=== PATIENT | female | born 1990 | race Caucasian/White ===

== ENCOUNTER 2018-12-03 17:04 | Emergency (ER) | payer OTHER, SELFPAY ==
[2018-12-03 17:07] VITALS: BP 127/65; PULSE 78; RESP 16; TEMP 36.6; O2SAT 100; BMI 34.7
--- NOTE | 2018-12-03 17:19 | PC.NURSE ---
pt reports, back in October 30, pt was running , felt a twinge lower back pain, since with intermittent pain, now +urine leaking for a week, +urgency. left lower leg with numbness anterior,lateral,posterior,+weakness the last 2 days. midlower lumbar pain radiating to left hip. denies chills/fever,+nausea, no vomiting, had diarrhea.
--- NOTE | 2018-12-03 17:28 | DI.RAD.S_ITS ---
PROCEDURE: XR LUMBAR SPINE 2-3V INDICATIONS: Lumbar vertebral pain, Left leg weakness. TECHNIQUE: 2 views of the lumbar spine were acquired. COMPARISON: None. FINDINGS: Bones: 5 [id number]-[id number] vertebrae are present. There is normal bony alignment. No vertebral body compression fractures. No suspicious bony lesions. Question bilateral L5 pars defects. Lower lumbar facet arthropathy. Soft tissues: Overlying bowel gas pattern is normal. No suspicious soft tissue calcifications. IMPRESSION: Question bilateral L5 pars defects with normal alignment. Lower lumbar facet arthropathy. Dictated by: Cash Thomas M.D. on 12/03/2018 at 18:01 Approved by: Cash Thomas M.D. on 12/03/2018 at 18:02
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
[2018-12-03] MEDS: KETOROLAC 60 MG/2 ML VIAL 30 MG IM (17:57)
[2018-12-03 19:00] VITALS: BP 117/63; PULSE 78; O2SAT 99
== END 2018-12-03 19:01 | disposition home or self-care (01) ==
PROVIDERS: Emergency Provider Nurse Practitioner
DX: M54.5 Low back pain (principal)
CPT/HCPCS: 72100; 81003; 81025; 96372; 99282; 99283; J1885

== ENCOUNTER 2019-06-05 11:22 | Emergency (ER) | payer OTHER, SELFPAY ==
[2019-06-05 11:46] VITALS: BP 133/88; PULSE 83; RESP 18; TEMP 36.6; O2SAT 98
[2019-06-05] MEDS: ACETAMINOPHEN 325 MG TABLET 975 MG PO (12:41)
[2019-06-05] MEDS: predniSONE 20 MG TABLET 40 MG PO (12:42)
[2019-06-05] MEDS: CYCLOBENZAPRINE 10 MG TABLET PO (12:43)
[2019-06-05] MEDS: LIDOCAINE PATCH 1 EACH ADH..PATCH TOP (12:43)
[2019-06-05 13:59] VITALS: PULSE 78; RESP 14; O2SAT 100
--- NOTE | 2019-06-05 14:19 | ED.BACK ---
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 Patient also starting to have some discomfort in right-sided low back pain as well. Patient reports last 2 months the pain has been coming on more frequently and severe. Patient reports she has been having similar pain since last year November without injury that she noticed after running 4 to 5 times a week. Patient was evaluated by her primary care physician in [employer] and had imaging tests done with x-ray, 2 MRI test without contrast. Last MRI test was done in May 14, 2019 after she had noticed stool incontinence. Patient is currently waiting to be seen by Eriedarwin Terrell with spinal injection in 3 days. She has been taking [id number] Tylenol and Motrin which she stopped per orthopedist instruction for 1 week prior to spine injection. Patient currently takes Cymbalta for nerve discomfort. Patient denies fever, vomiting but reports some mild chills and nausea. Patient also reports urinary frequency without dysuria or hematuria. Patient was referred to emergency room today by her slight surgeon due to the severe pain. Related Data Home Medications Medication Instructions Recorded Confirmed acetaminophen [Tylenol Extra 1,000 mg PO TID 06/05/19 06/05/19 Strength] duloxetine 30 mg PO DAILY 06/05/19 06/05/19 ibuprofen 800 mg PO Q8H 06/05/19 06/05/19 norgestimate-ethinyl estradiol 1 tab PO DAILY 06/05/19 06/05/19 [[facility]-L[facility]ah] Previous Rx's Medication Instructions Recorded cyclobenzaprine 10 mg PO BID PRN #7 tab 06/05/19 lidocaine 1 patch TOP DAILY #15 each 06/05/19 prednisone 40 mg PO DAILY 4 Days #8 tab 06/05/19 Allergies Allergy/AdvReac Type Severity Reaction Status Date / Time No Known Drug Allergies Allergy Verified 12/03/18 17:07 Review of Systems <KARON Marinelli - Last Filed: 06/05/19 14:54> Review of Systems Narrative: General: Denies fever, chills, fatigue, malaise, sweats. HEENT: Denies sinus pain, ear pain, sore throat, difficulty swallowing, dizziness. Respiratory: Denies dyspnea, cough, wheezing, hemoptysis, sputum. Cardiovascular: Denies chest pain, palpitations, orthopnea, edema. Gastrointestinal: Denies nausea, vomiting, abdominal pain, diarrhea, constipation, melena. : Denies dysuria, (+) frequency, incontinence, hematuria, urinary retention. Musculoskeletal: See HPI Skin: Denies rash, skin lesions, or other. Neurologic: Denies headache, (+) numbness and weakness to left leg, change in speech, confusion, seizures, incoordination. Psychiatric: No concerning psychosocial issues. 12-point review of systems is negative except for those stated above. Patient History <KARON Marinelli - Last Filed: 06/05/19 14:54> Medical History No significant medical problems (Acute) Social History Smoking Status: Never smoker Smoking Status: Never smoker alcohol intake frequency: holidays/special occasions only Substance Use Type: does not use Exam <KARON Marinelli - Last Filed: 06/05/19 14:54> Narrative Exam Narrative: General appearance: well developed, well nourished, appears to be in moderate discomfort. Head: normocephalic, atraumatic, no scalp lesions, non-tender. ENT: Bilateral auditory canals and tympanic membranes clear. Hearing grossly intact. Nose without bleeding, purulent discharge, septal hematoma or deviation. Turbinate without erythema or swelling. Facial sinuses nontender to palpate. Mucous membrane moist, no mucosal lesion. Throat without erythema, tonsillar hypertrophy or exudate. Uvula in midline, airway patent. Neck/Thyroid: neck supple, full range of motion, no visible masses or meningeal signs. No JVD, non-tender without lymphadenopathy. Skin: no suspicious rashes, lesions over visible areas. Warm and dry and appropriate color for ethnicity. Heart: no clubbing, no cyanosis, no edema. S1 and S2 normal. RRR w/o murmurs, clicks, or bruits. Lungs: Breathing even and unlabored. No stridor. No accessory muscles used. Able to speak in full sentences. Chest: normal shape and expansion. Abdomen: non-obese, non-distended. Neurologic: alert and oriented. Cognitive exam, [employer] and PNS grossly intact on informal exam. Psych: good eye contact, normal affect. Initial Vital Signs Initial Vital Signs: Vital Signs Temperature 97.8 F 06/05/19 11:46 Pulse Rate 83 06/05/19 11:46 Respiratory Rate 18 06/05/19 11:46 Blood Pressure 133/88 06/05/19 11:46 Pulse Oximetry 98 06/05/19 11:46 Back/Spine/Pelvis Back: normal to inspection, back tenderness, No crepitance, No CVA tenderness, No ecchymosis, No erythema, No sacral edema and No warmth Thoracic/Lumbar Spine: pain with thoraco-lumbar ROM, paraspinal tenderness, lumbar spinal tenderness and straight leg raise positive (L leg) <Jaky Borges DO - Last Filed: 06/06/19 07:05> Initial Vital Signs Initial Vital Signs: Vital Signs Temperature 97.8 F 06/05/19 11:46 Pulse Rate 83 06/05/19 11:46 Respiratory Rate 18 06/05/19 11:46 Blood Pressure 133/88 06/05/19 11:46 Pulse Oximetry 98 06/05/19 11:46 Scores <KARON Marinelli - Last Filed: 06/05/19 14:54> GCS Jame coma scale eye opening: Spontaneous Jame coma scale verbal response: Orientated [place] coma scale motor response: Obey commands [place] coma scale total score: 15 Course <KARON Marinelli - Last Filed: 06/05/19 14:54> Orders Ordered: Discontinued Medications Acetaminophen (Tylenol) 975 mg PO NOW ONE Stop: 06/05/19 12:23 Last Admin: 06/05/19 12:41 Dose: 975 mg Documented by: JA Cyclobenzaprine HCl (Flexeril) 10 mg PO NOW ONE Stop: 06/05/19 12:23 Last Admin: 06/05/19 12:43 Dose: 10 mg Documented by: JA Lidocaine (Lidoderm) 1 each TOP NOW ONE Stop: 06/05/19 12:23 Last Admin: 06/05/19 12:43 Dose: 1 each Documented by: JA Prednisone (Deltasone) 40 mg PO NOW ONE Stop: 06/05/19 12:23 Last Admin: 06/05/19 12:42 Dose: 40 mg Documented by: JA Vital Signs Vital signs: Vital Signs - 8 hr 06/05/19 11:46 06/05/19 13:59 Temperature 97.8 F Pulse Rate 83 78 Respiratory Rate 18 14 Blood Pressure 133/88 Pulse Oximetry 98 100 <Jaky Borges DO - Last Filed: 06/06/19 07:05> Orders Ordered: Discontinued Medications Acetaminophen (Tylenol) 975 mg PO NOW ONE Stop: 06/05/19 12:23 Last Admin: 06/05/19 12:41 Dose: 975 mg Documented by: JA Cyclobenzaprine HCl (Flexeril) 10 mg PO NOW ONE Stop: 06/05/19 12:23 Last Admin: 06/05/19 12:43 Dose: 10 mg Documented by: JA Lidocaine (Lidoderm) 1 each TOP NOW ONE Stop: 06/05/19 12:23 Last Admin: 06/05/19 12:43 Dose: 1 each Documented by: JA Prednisone (Deltasone) 40 mg PO NOW ONE Stop: 06/05/19 12:23 Last Admin: 06/05/19 12:42 Dose: 40 mg Documented by: JA Vital Signs Vital signs: Vital Signs - 8 hr 06/05/19 11:46 06/05/19 13:59 Temperature 97.8 F Pulse Rate 83 78 Respiratory Rate 18 14 Blood Pressure 133/88 Pulse Oximetry 98 100 MDM - Back Pain/Injury <KARON Marinelli - Last Filed: 06/05/19 14:54> Differential Diagnosis Differential diagnosis: Likely lumbar radiculopathy, sciatica, strain of lumbar region, pyelonephritis and other (UTI) Medical Records Attestation: I reviewed the patient's medical records. Lab Data Attestation: I reviewed the patient's lab results. Labs: Point of Care Testing Test Results Negative Urine Dip Bedside Urine Glucose Negative Bedside Urine Bilirubin - Negative Bedside Urine Ketone - Negative Urine Specific [place] 1.020 Bedside Urine Occult Blood - Negative Bedside Urine pH 6.0 Bedside Urine Protein - Negative Bedside Urine Urobilinogen - Negative Bedside Urine Nitrite - Negative Bedside Urine Leukocytes - Negative Esterase [facility] Narrative Medical decision making narrative: This is a 28-year-old female who presents to ED with lumbar discomfort, numbness radiating to left toe and now the pain has been progressing to right back as well. Patient has chronic low back pain and sciatica since November last year. Patient is afebrile. Patient is waiting for spine injection in [address] Terrell at [facility] orthopedist for the initial appointment. Patient has been taking Cymbalta and Tylenol as needed for discomfort. Patient denies incontinence and reports had previous incontinence for urine and stool but not recent. Last MRI was in 05/14/2019. Urine no signs of infection per UA Patient was medicated with Flexeril, prednisone, Tylenol and held and NSAIDS per orthopedist instruction prior spine injection. Patient felt improved pain after those medication and discharged to home with above medications. Return precautions were discussed with patient and patient verbalized understanding along Flexeril medication precautions and agrees to treatment plan. Patient advised to follow-up with Dr. Terrell as scheduled in 3 days. <Jaky Borges DO - Last Filed: 06/06/19 07:05> Lab Data Labs: Point of Care Testing Test Results Negative Urine Dip Bedside Urine Glucose Negative Bedside Urine Bilirubin - Negative Bedside Urine Ketone - Negative Urine Specific [place] 1.020 Bedside Urine Occult Blood - Negative Bedside Urine pH 6.0 Bedside Urine Protein - Negative Bedside Urine Urobilinogen - Negative Bedside Urine Nitrite - Negative Bedside Urine Leukocytes - Negative Esterase Discharge Plan Departure Patient Disposition: Home Clinical Impression: Sciatica Qualifiers: Laterality: unspecified laterality Qualified Code(s): M54.30 - Sciatica, unspecified side Discharge Date/Time: 06/05/19 14:00 Instructions: DI for Back Pain With Sciatica Activity Restrictions/Additional Instructions: You have been diagnosed with [low back pain and sciatica. There is no significant changes since last MRI, additional imaging test has been deferred today. Please follow-up with [facility] Dr. Dahl on Saturday as scheduled for the spinal injection. You were medicated with lidocaine patch, Tylenol, Flexeril and prednisone while in ED. urine test today does not appears to be having on infection.]. What to do: *Take your medications as directed. You can take Tylenol up to 4000 mg in 24 hour period. Flexeril will cause drowsiness so please take precautions not driving, drinking alcohol or operating heavy equipments. Lidocaine patch stays on for 12 hours and off for 12 hours. Please ensure to inform orthopedic doctor that you are taking prednisone on Saturday and inquire whether to continue for additional 2 more days or stopping. These medication are transmitted to [facility] in [place]. *Follow up with your primary care provider/Orthpedic specialist in 2-3 days as scheduled. Let them know you were seen in the ED and that we asked you to be seen in follow up. *Return to ED if you have any new, worsening, or concerning symptoms, such as [severe pain, incontinence, numbness to groin area, fever, chest pain, breathing difficulty or any other acute concerns]. Prescriptions: New cyclobenzaprine 10 mg tablet 10 mg PO BID PRN (Reason: muscle spasm) Qty: 7 RF: 0 lidocaine 5 % adhesive patch,medicated 1 patch TOP DAILY Qty: 15 RF: 0 prednisone 20 mg tablet 40 mg PO DAILY 4 Days Qty: 8 RF: 0 No Action norgestimate-ethinyl estradiol [[facility]] 0.25-35 mg-mcg tablet 1 tab PO DAILY RF: 0 acetaminophen [Tylenol Extra Strength] 500 mg Tablet 1,000 mg PO TID RF: 0 duloxetine 30 mg capsule,delayed release(DR/EC) 30 mg PO DAILY RF: 0 ibuprofen 200 mg Tablet 800 mg PO Q8H RF: 0 Referrals: [facility] [Provider Group] [facility] [Outside]
== END 2019-06-05 14:00 | disposition home or self-care (01) ==
PROVIDERS: Emergency Provider Nurse Practitioner Family
DX: M54.30 Sciatica, unspecified side (principal)
CPT/HCPCS: 81003; 81025; 99283